=== PATIENT | male | born 1950 | race Caucasian/White ===

== ENCOUNTER → 2022-08-15 13:00 | Outpatient (BNVA) | payer MEDICARE, SELFPAY | PROVIDERS: Family Provider Family Medicine; Visit Provider Thoracic Surgery (Cardiothoracic Vascular Surgery) | DX: I96 Gangrene, not elsewhere classified (principal); L89.312 Pressure ulcer of right buttock, stage 2 | CPT/HCPCS: 97597; 99213; A6212 ==

== ENCOUNTER → 2022-08-22 13:58 | Outpatient (BNVA) | payer MEDICARE, SELFPAY | PROVIDERS: Family Provider Family Medicine; Visit Provider Thoracic Surgery (Cardiothoracic Vascular Surgery) | DX: L89.312 Pressure ulcer of right buttock, stage 2 (principal) | CPT/HCPCS: 99212 ==

== ENCOUNTER 2023-12-21 22:09 | Observation (INO) | payer MEDICARE, SELFPAY ==
[2023-12-21 22:11] VITALS: BP 187/72; PULSE 63; RESP 20; TEMP 37.1; O2SAT 98; BMI 45.1
[2023-12-21 22:22] VITALS: BP 187/72; PULSE 62; RESP 18; O2SAT 98
[2023-12-21 22:24] LABS: Glucose Point of Care 77 mg/dL (70-110)
[2023-12-21 23:01] LABS: Glucose Point of Care 76 mg/dL (70-110)
--- NOTE | 2023-12-21 23:09 | XRR_ITS ---
PROCEDURE INFORMATION: Exam: XR Chest Exam date and time: 12/22/2023 12:22 AM Age: 73 years old Clinical indication: Other: AMS; Patient HX: High BP; Hypoglycemia TECHNIQUE: Imaging protocol: Radiologic exam of the chest. Views: 1 view. COMPARISON: No relevant prior studies available. FINDINGS: Lungs: There is incomplete lung expansion and crowding of the vascular markings. Impression could. There is right basilar consolidation that may be secondary to atelectasis or in the appropriate clinical setting, pneumonia. Pleural spaces: No pleural effusion or pneumothorax. Heart/Mediastinum: Normal in size. Bones/joints: No acute fracture is identified. XR/XR chest 1V portable [id number] IMPRESSION: 1. Right basilar consolidation that may be secondary to atelectasis or in the appropriate clinical setting, pneumonia. 2. Incomplete lung expansion and crowding of the vascular markings.
[2023-12-21] MEDS: dextrose 10% 250 ML IV (23:32)
[2023-12-21 23:51] LABS: Basophils % 0.3 %; Eosinophils # 0.2 10^3/uL (0.0-0.8); Eosinophils % 1.5 %; Hematocrit 39.3 % (37-53); Lymphocytes # 1.9 10^3/uL (0.8-4.8); Lymphocytes % 12.8 %; Mean Corpuscular HGB Conc 31.8 g/dL (30-55); Mean Corpuscular Hemoglobin 29.8 pg (27-33); Mean Corpuscular Volume 93.8 fl (82-101); Mean Platelet Volume 9.3 fL (7.4-10.4); Monocytes # 1.1 10^3/uL (0.2-0.9); Monocytes % 7.2 %; Neutrophils # 11.74 10^3/uL (1.8-7.7); Neutrophils % 77.7 %; Nucleated Red Blood Cells % 0 %; Platelet Count 178 10^3/cmm (157-399); Red Blood Count 4.19 10^6/uL (3.85-5.65); Red Cell Distribution Width 14.3 % (12.1-15.1); White Blood Count 15.11 10^3/uL (3.29-11.43)
[2023-12-22 00:11] LABS: Alanine Aminotransferase 10 U/L (0-41); Albumin Level 3.7 g/dL (3.5-5.2); Alkaline Phosphatase 73 U/L (40-130); Anion Gap 14.1 (5-19); Aspartate Amino Transferase 16 U/L (0-40); Blood Urea Nitrogen 31 mg/dL (8-23); Carbon Dioxide 30 mmol/L (22-29); Chloride 100 mmol/L (98-107); Creatinine Clr Calc Pharmacy 35.0227; Globulin 3.5 g/dL (1.3-4.6); Glucose 61 mg/dL (65-115); Osmolality Calculated 292 mOsm/kg (285-295); Potassium 5.1 mmol/L (3.5-5.1); Sodium 139 mmol/L (136-145); Total Bilirubin 0.3 mg/dL (0.15-1.2); Total Protein 7.2 g/dL (6.6-8.7)
[2023-12-22 00:12] LABS: Lactic Sepsis W/Reflex 1.5 mmol/L (0.5-2.2)
[2023-12-22 00:59] VITALS: PULSE 59; RESP 18; O2SAT 98
[2023-12-22 01:00] VITALS: BP 164/66; PULSE 57; O2SAT 98
[2023-12-22 01:00] LABS: Glucose Point of Care 65 mg/dL (70-110)
[2023-12-22 01:31] LABS: Blood Urine Neg (Negative); Glucose Urine UA Norm (Normal); Ketones Urine Negative (Negative); Protein Urine 1+ (Negative); Urine Appearance Clear (CLEAR); Urine Color Yellow (Yellow); pH Urine 5 (5-7)
[2023-12-22 01:32] LABS: Add Urine Microscopic? YES; Bacteria Urine TRACE /hpf; Bilirubin Urine Neg (Negative); Leukocyte Esterase Urine Trace (Negative); Nitrate Urine Negative (Negative); Urobilinogen Urine Neg (Negative); WBC Urine 15-25 /hpf (0-5)
--- NOTE | 2023-12-22 01:54 | W.ED.AMS ---
HPI - Altered Mental Status General: Chief Complaint: Altered Mental Status Stated Complaint: AMS Time Seen by Provider: 12/21/23 22:25 History of Present Illness: 73-year-old male diabetic. Presents with altered mental status. His blood sugar was found low on EMS arrival. He was given glucose. His blood glucose is low again here. He is still mildly confused. He is more alert than he was prior to arrival. Evidently he was combative with EMS, and had to be given a small dose of ketamine. He seems to have recovered from this. Review of Systems Resp: Denies: dyspnea or productive cough PFSH ED PFSH: Medical History History of nonmelanoma skin cancer Hypertension Renal disease Diabetes Family History Other Cancer Hypertension Denies family history of Diabetes CAD (coronary artery disease) Social History Smoking and tobacco/nicotine status: never used tobacco/nicotine Alcohol intake: never Substance/Drug Use: never Physical Exam Const: COMMON NORMALS: no acute distress GENERAL APPEARANCE: cooperative; not ill appearing and not frail appearing HENMT: COMMON NORMALS: normocephalic, atraumatic and Normal external nose present HEAD & SCALP: normocephalic and atraumatic FACE & SINUS: normal facial exam and face symmetric NOSE: Normal external nose present Eye: COMMON NORMALS: Equal, round and reactive pupils present and EOMs intact bilaterally PUPIL: Yes Equal, round and reactive pupils present Neck/C-Spine: GENERAL: Yes trachea midline Chest: CHEST: Yes Symmetrical chest wall rise Resp: COMMON NORMALS: normal respiratory effort, No retractions, No use of accessory muscles and clear to auscultation bilaterally AUSCULTATION: clear to auscultation bilaterally Cardio: COMMON NORMALS: regular rate and regular rhythm RATE: regular rate RHYTHM: regular rhythm GI: COMMON NORMALS: Normal to inspection, nondistended, normoactive bowel sounds present Extremity: COMMON NORMALS: no pedal edema Neuro: ALDAIR COMA SCALE: document GCS findings [place] coma scale eye opening: Spontaneous [place] coma scale verbal response: Confused [place] coma scale motor response: Obey commands [place] coma scale total score: 14 SENSORY EXAM: Yes extremities (intact) Psych: COMMON NORMALS: speech normal SPEECH: Yes normal speech Skin: COMMON NORMALS: no rashes or lesions noted GENERAL SKIN EXAM: no rashes or lesions noted Course Vital Signs: Vital signs: Vital Signs Temperature 98.8 F 12/21/23 22:11 Pulse Rate 59 L 12/22/23 00:59 Respiratory Rate 18 12/22/23 00:59 Blood Pressure 187/72 12/21/23 22:22 Pulse Oximetry 98 12/22/23 00:59 Oxygen Delivery Me thod Room Air 12/22/23 00:59 MDM - Altered Mental Status Medical Decision Making He is mildly hypertensive. Other vitals are stable. His blood glucose on serum testing is 61. This is despite being served use, and peanut butter here. He is given dextrose 10 with minimal improvement. His creatinine is 2.8, and he is on glipizide. Likely the driving force of his continued low blood sugar. Chest x-ray reveals right basilar atelectasis. His lactic acid is normal. He is not acidotic. His anion gap is 14. Urinalysis is negative. He will be observed for continued hyperglycemia and acute kidney injury. Sugar will not stay up. Multiple doses of dextrose been given. Will have to observe the patient. He appears to have acute kidney injury as well. Hospitalist agrees. Lab Data 12/21/23 23:43 12/21/23 23:43 Radiology Impressions Chest X-Ray 12/21/23 23:09 IMPRESSION: 1. Right basilar consolidation that may be secondary to atelectasis or in the appropriate clinical setting, pneumonia. 2. Incomplete lung expansion and crowding of the vascular markings. Laboratory Results WBC 15.11 10^3/uL (3.29-11.43) H 12/21/23 23:43 RBC 4.19 10^6/uL (3.85-5.65) 12/21/23 23:43 Hgb 12.50 g/dL (11.27-16.99) 12/21/23 23:43 Hct 39.3 % (37-53) 12/21/23 23:43 MCV 93.8 fl (82-101) 12/21/23 23:43 MCH 29.8 pg (27-33) 12/21/23 23:43 MCHC 31.8 g/dL (30-55) 12/21/23 23:43 RDW 14.3 % (12.1-15.1) 12/21/23 23:43 Plt Count 178 10^3/cmm (157-399) 12/21/23 23:43 MPV 9.3 fL (7.4-10.4) 12/21/23 23:43 Neut % (Auto) 77.7 % 12/21/23 23:43 Lymph % (Auto) 12.8 % 12/21/23 23:43 [place] % (Auto) 7.2 % 12/21/23 23:43 Eos % (Auto) 1.5 % 12/21/23 23:43 Baso % (Auto) 0.3 % 12/21/23 23:43 Neut # (Auto) 11.74 10^3/uL (1.8-7.7) H 12/21/23 23:43 Lymph # (Auto) 1.9 10^3/uL (0.8-4.8) 12/21/23 23:43 [place] # (Auto) 1.1 10^3/uL (0.2-0.9) H 12/21/23 23:43 Eos # (Auto) 0.2 10^3/uL (0.0-0.8) 12/21/23 23:43 Baso # (Auto) 0.0 10^3/uL (0.0-0.1) 12/21/23 23:43 Nucleated RBC % (auto) 0 % 12/21/23 23:43 Nucleated RBCs # 0.0 /100WBC 12/21/23 23:43 Sodium 139 mmol/L (136-145) 12/21/23 23:43 Potassium 5.1 mmol/L (3.5-5.1) 12/21/23 23:43 Chloride 100 mmol/L (98-107) 12/21/23 23:43 Carbon Dioxide 30 mmol/L (22-29) H 12/21/23 23:43 Anion Gap 14.1 (5-19) 12/21/23 23:43 BUN 31 mg/dL (8-23) H 12/21/23 23:43 Creatinine 2.8 mg/dL (0.7-1.2) H 12/21/23 23:43 GFR Calculation Not Reportable 12/21/23 23:43 Glucose 61 mg/dL (65-115) L 12/21/23 23:43 POC Glucose 65 mg/dL (70-110) L 12/22/23 00:56 Calculated Osmolality 292 mOsm/kg (285-295) 12/21/23 23:43 Lactic Acid 1.5 mmol/L (0.5-2.2) 12/21/23 23:43 Calcium 9.0 mg/dL (8.5-10.5) 12/21/23 23:43 Total Bilirubin 0.3 mg/dL (0.15-1.2) 12/21/23 23:43 AST 16 U/L (0-40) 12/21/23 23:43 ALT 10 U/L (0-41) 12/21/23 23:43 Alkaline Phosphatase 73 U/L (40-130) 12/21/23 23:43 C-Reactive Protein 15.0 mg/L (0.0-4.9) H 12/21/23 23:43 Total Protein 7.2 g/dL (6.6-8.7) 12/21/23 23:43 Albumin 3.7 g/dL (3.5-5.2) 12/21/23 23:43 Globulin 3.5 g/dL (1.3-4.6) 12/21/23 23:43 Procalcitonin 0.12 ng/mL (0-0.5) 12/21/23 23:43 Urine Color Yellow (Yellow) 12/22/23 01:11 Urine Appearance Clear (CLEAR) 12/22/23 01:11 Urine pH 5 (5-7) 12/22/23 01:11 Ur Specific [place] 1.010 (1.005-1.030) 12/22/23 01:11 Urine Protein 1+ (Negative) H 12/22/23 01:11 Urine Glucose (UA) Norm (Normal) 12/22/23 01:11 Urine Ketones Negative (Negative) 12/22/23 01:11 Urine Blood Neg (Negative) 12/22/23 01:11 Urine Nitrate Negative (Negative) 12/22/23 01:11 Urine Bilirubin Neg (Negative) 12/22/23 01:11 Urine Urobilinogen Neg mg/dL (Negative) 12/22/23 01:11 Ur Leukocyte Esterase Trace (Negative) H 12/22/23 01:11 Urine RBC 5-10 /hpf (0-2) H 12/22/23 01:11 Urine WBC 15-25 /hpf (0-5) H 12/22/23 01:11 Ur Squamous Epith Cells 5-10 /hpf (0-5) H 12/22/23 01:11 Amorphous Sediment Not Reportable 12/22/23 01:11 Urine Bacteria Trace /hpf (NONE) 12/22/23 01:11 All radiology interpretation(s) finalized by discharge Discharge Plan Discharge Patient Disposition: Placed in Observation Admit Provider: Sabas Ballard Clinical Impression: Altered mental status, Hypoglycemia, AMY (acute kidney injury) Condition: Stable Coding Level of Care Code 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
--- NOTE | 2023-12-22 02:55 | P.HP_ITS ---
Providers/Chief Complaint 2 Primary Care Provider: Isiah Kelsey MD Chief Complaint: AMS History of Present Illness Zaire Lewis is a 73 year old male with history of diabetes, lives with his , presented with chief complaint of low blood sugar and altered mental status. Patient is stating that for last 3 days he has been vomiting he vomited 10 times, it was bilious in consistency. He denies any fever, he mostly takes all of his medication at bedtime. Last night when he was having dinner he started experiencing numbness around his lips he thought someone is trying to poison him, he became paranoid, had syncopal event He knew he was in the hospital. As per the EMS he was very agitated he was given ketamine. His confusion got better gradually in the hospital no signs of stroke or meningitis,, for his hypoglycemia he was put on dextrose IV fluids which we have discontinued because his blood sugar has improved Hemoglobin A1c is below 6 he should not be taking glipizide CT abdomen pelvis was requested which showed proctocolitis, signs of chronic kidney disease Review of Systems 2 Const: Denies: fever(s) Eyes: Denies: change in vision ENMT: Denies: throat pain Card: Denies: chest pain Resp: Denies: dyspnea GI: Reports: abdominal pain, nausea and vomiting : Denies: flank pain Musc: Reports: back pain Medications/Allergies Home Medications Medication Instructions Recorded Confirmed Last Taken Type acetaminophen 325 mg capsule 325 mg PO QID PRN 10/27/20 10/24/21 Unknown History (Tylenol) ammonium lactate 12 % topical cream 1 applic topical DAILY 10/27/20 10/24/21 Unknown History duloxetine 60 mg capsule,delayed 60 mg PO DAILY 10/27/20 10/24/21 Unknown History release gabapentin 100 mg capsule 100 mg PO TID 10/27/20 10/24/21 Unknown History glipizide 5 mg tablet 5 mg PO BID 10/27/20 10/24/21 Unknown History metoprolol tartrate 50 mg tablet 50 mg PO BID 10/27/20 10/24/21 Unknown History omega-3 fatty acids-vitamin E cap PO 10/27/20 10/24/21 Unknown History 1,000 mg capsule tamsulosin 0.4 mg capsule 0.4 mg PO DAILY 10/27/20 10/24/21 Unknown History tramadol 50 mg tablet 50 mg PO BID PRN 10/27/20 10/24/21 Unknown History trazodone 100 mg tablet 100 mg PO DAILY 10/27/20 10/24/21 Unknown History valsartan 80 mg tablet 80 mg PO DAILY 10/27/20 10/24/21 Unknown History triamcinolone acetonide 0.1 % 1 applic topical BID #80 grams 10/25/21 10/25/21 Unknown Rx topical ointment Allergies Allergy/AdvReac Type Severity Reaction Status Date / Time No Known Allergies Allergy Verified 10/24/21 11:07 PFSH Acute 2 PFSH: Medical History History of nonmelanoma skin cancer Hypertension Renal disease Diabetes Family History Other Cancer Hypertension Denies family history of Diabetes CAD (coronary artery disease) Social History Smoking and tobacco/nicotine status: never used tobacco/nicotine Alcohol intake: never Substance/Drug Use: never Vitals/I&O/Wt Last Vital Signs Temp 98.8 F 12/21/23 22:11 Pulse 59 L 12/22/23 00:59 Resp 18 12/22/23 00:59 BP 187/72 12/21/23 22:22 Pulse Ox 98 12/22/23 00:59 O2 Del Method Room Air 12/22/23 00:59 12/21/23 12/21/23 12/22/23 14:59 22:59 06:59 Intake Total 250 / 250 Balance 250 / 250 Weight last 48 hrs Weight 151.046 kg Physical Exam 2 Narrative: Morbidly obese male Awake and alert GCS 15 Nonfocal neuroexam Pleasant cooperative Nontender distended abdomen S1, S2 NIH 0 Currently room air Data 12/21/23 23:43 12/21/23 23:43 A&P Assessment and plan (1) Hypoglycemia: (2) Altered mental status: (3) Acute kidney injury superimposed on chronic kidney disease: (4) Proctocolitis: (5) Constipation: Plan Metabolic encephalopathy Related to UTI, hypoglycemia and proctocolitis No sign of sepsis Hyperglycemia improved, discontinued IV fluids Hemoglobin A1c 5.3 patient should not be taking glipizide at home Acute on chronic kidney disease: Bladder outlet obstruction, distended bladder, required straight cath Signs of UTI present as well Proctocolitis: Considering UTI proctocolitis I decided to choose Zosyn which will be renally dosed Type 2 diabetes: Patient should not take glipizide . Hypertension: Considering worsening creatinine I will hold off on valsartan Full code Cardiac consistent carb diet Constipation: Will give lactulose DVT prophylaxis added Insulin with sliding scale Attestations 2 Medical Necessity Statement*: Anticipating discharge within 48 hours Diagnoses Hypoglycemia E16.2 Altered mental status R41.82 Acute kidney injury superimposed on chronic kidney disease N17.9; N18.9 Proctocolitis K52.9 Constipation K59.00
--- NOTE | 2023-12-22 02:58 | CTR_ITS ---
PROCEDURE INFORMATION: Exam: CT Abdomen And Pelvis Without Contrast Exam date and time: 12/22/2023 4:27 AM Age: 73 years old Clinical indication: Other: Philip; Additional info: CR 2.8 TECHNIQUE: Imaging protocol: Computed tomography of the abdomen and pelvis without contrast. Radiation optimization: All CT scans at this facility use at least one of these dose optimization techniques: automated exposure control; mA and/or kV adjustment per patient size (includes targeted exams where dose is matched to clinical indication); or iterative reconstruction. COMPARISON: CR (CHEST, ) 22/12/2023 00:22 RADIATION DOSE METRICS: Total DLP (mGy-cm): 1362.84 FINDINGS: Lungs: There are bibasilar ground-glass opacities. Liver: Normal size and homogeneous density. No liver mass is seen. Gallbladder and biliary ducts: Multiple laminated gallstones as large as 2.7 cm. No pericholecystic fluid or gallbladder wall thickening. Pancreas: Normal size and homogeneous density. No ductal dilation. Spleen: Normal. No splenomegaly. Adrenal glands: Normal. No mass. Kidneys and ureters: Bilateral rather small kidneys, the right measuring 9.4 cm in length and the left measuring 10.2 cm in length. There is no hydronephrosis. No renal or obstructive ureteral calculi identified. In the right kidney, there is a 2.5 cm hypodense lesion that may represent a simple cyst or angiomyolipoma. Stomach and bowel: There is no evidence of small bowel or colonic obstruction. Moderate fecal stasis in the rectosigmoid with thickening of the wall consistent with stercoral proctocolitis. Appendix: A normal appendix is identified. Intraperitoneal space: No free air. No significant fluid collection. Vasculature: No abdominal aortic aneurysm. Lymph nodes: No enlarged retroperitoneal or mesenteric lymph nodes. Urinary bladder: A moderately to severely distended urinary bladder measuring 12.3 x 8.3 x 9.2 cm. Reproductive: The prostate measures 4.4 cm in transverse dimension, not enlarged. Bones/joints: No acute fracture. No evidence of bone destruction. Soft tissues: Unremarkable. CT/CT abdomen pelvis wo con [id number] IMPRESSION: 1. Bilateral rather small kidneys without hydronephrosis, with no renal or ureteral calculi. 2. A 2.5 cm hypodense lesion in the right kidney that may represent a simple cyst or angiomyolipoma. 3. Moderate fecal stasis in the rectosigmoid with thickening of the wall consistent with stercoral proctocolitis. 4. A moderately to severely distended urinary bladder measuring 12.3 x 8.3 x 9.2 cm. 5. There are bibasilar ground-glass opacities. These may represent atelectasis, pneumonitis or mild edema.
[2023-12-22 03:27] LABS: Procalcitonin 0.12 ng/mL (0-0.5)
[2023-12-22] MEDS: dextrose 10% 250 ML 999 ML IV (03:31)
[2023-12-22 03:40] LABS: Glucose Point of Care 65 mg/dL (70-110)
[2023-12-22] MEDS: sodium chloride 0.9% 1,000 ML 999 ML IV (04:06)
[2023-12-22 04:07] VITALS: BP 158/47; PULSE 66; RESP 18; O2SAT 97
[2023-12-22] MEDS: glucagon 1 mg/mL KIT 1 mL IM (04:19)
[2023-12-22 05:28] LABS: Glucose Point of Care 101 mg/dL (70-110)
[2023-12-22] MEDS: cefTRIAXone 1,000 MG in sodium chloride 0.9% (plus) 50 ML 100 MG IV (05:36)
[2023-12-22] MEDS: heparin 5,000 unit/mL INJ 1 mL 5000 UNIT SUBCUT (05:42)
[2023-12-22 06:20] LABS: Estmated Average Glucose 105; Hemoglobin A1C 5.3 % (4.0-6.0)
[2023-12-22 06:57] LABS: Thyroid Stimulating Hormone 1.74 uIU/mL (0.27-4.20); Vitamin B12 1710 pg/mL (232-1245)
[2023-12-22 08:07] VITALS: BP 165/70; PULSE 62; RESP 18; TEMP 36.7; O2SAT 94
[2023-12-22] MEDS: lactulose oral liq 20 gm/30 mL UDC 30 GM PO (08:37)
[2023-12-22] MEDS: TRAMadol 50 mg Tablet PO (08:37)
[2023-12-22] MEDS: metoprolol tartrate 25 mg Tablet PO (08:37)
[2023-12-22] MEDS: amlodipine 10 mg Tablet PO (08:37)
[2023-12-22] MEDS: piperacillin-tazobactam 3.375 GM in sodium chloride 0.9% (plus) 50 ML IV (08:37)
[2023-12-22] MEDS: tamsulosin 0.4 mg Capsule PO (08:37)
[2023-12-22 11:10] LABS: Glucose Point of Care 111 mg/dL (70-110)
[2023-12-22 11:26] VITALS: BP 127/56; PULSE 73; RESP 18; TEMP 36.7; O2SAT 92
[2023-12-22 14:29] VITALS: BP 127/56; PULSE 73; RESP 18; TEMP 36.7; O2SAT 92
--- NOTE | 2023-12-22 19:58 | PM.MISC ---
Miscellaneous Note Purpose of Documentation: Assessed patient at 2 PM. Patient requesting discharge to home. States that he understands he has stercoral colitis but states he does not like having bowel movements in the hospital bathroom therefore he would much rather go home. Hypoglycemia remains resolved. Glipizide has been discontinued at discharge. His A1c is only at 5.3. Patient is clinically stable. Afebrile, hemodynamically stable. Tolerating p.o. intake. Discontinued IV antibiotics, transition to oral ciprofloxacin and metronidazole at the time of discharge. Instructed to follow-up with general surgery for follow-up colonoscopy after 6 weeks. Added lactulose 10 mg to his daily regimen to minimize risk of recurrent stercoral colitis. Patient reports he has baseline CKD. Reports his last GFR to be close to 22.This appears to be close to his kidney function today. States that he is not yet considered a candidate for dialysis. Follows with virology teacher in [place]. Consider this note to be a short stay summary
== END 2023-12-22 14:30 | disposition home or self-care (01) ==
LOC: ER 12-22 01:56 → MEDSURG 12-22 03:51
PROVIDERS: Admitting Provider Internal Medicine; Emergency Provider Emergency Medicine; PCP Family Medicine; Visit Provider Student in an Organized Health Care Education/Training Program
DX: E11.649 Type 2 diabetes mellitus with hypoglycemia without coma (principal); R41.82 Altered mental status, unspecified; N17.9 Acute kidney failure, unspecified; E11.22 Type 2 diabetes mellitus with diabetic chronic kidney disease; I12.9 Hypertensive chronic kidney disease with stage 1 through stage 4 chronic kidney disease, or unspecified chronic kidney disease; N18.9 Chronic kidney disease, unspecified; K52.9 Noninfective gastroenteritis and colitis, unspecified; K59.00 Constipation, unspecified; N32.0 Bladder-neck obstruction
CPT/HCPCS: 36415; 36416; 71045; 74176; 80053; 81001; 82607; 82962; 83036; 83605; 84145; 84443; 85025; 86140; 96365; 96367; 96372; 99285; G0378; J0696; J1610; J1644; J2543; J7030; J7799

== ENCOUNTER → 2023-12-25 09:30 | Outpatient (BNVA) | payer MEDICARE, SELFPAY | PROVIDERS: PCP Family Medicine; Visit Provider Nurse Practitioner Family | DX: D48.5 Neoplasm of uncertain behavior of skin (principal); L57.0 Actinic keratosis; L82.1 Other seborrheic keratosis; L81.4 Other melanin hyperpigmentation; L73.8 Other specified follicular disorders; L57.8 Other skin changes due to chronic exposure to nonionizing radiation; Z85.820 Personal history of malignant melanoma of skin; Z85.828 Personal history of other malignant neoplasm of skin | CPT/HCPCS: 11102; 17000; 99213 ==

== ENCOUNTER → 2024-01-20 10:14 | Outpatient (BNVA) | payer MEDICARE, SELFPAY | PROVIDERS: PCP Family Medicine; Visit Provider Dermatology | DX: D04.62 Carcinoma in situ of skin of left upper limb, including shoulder (principal); D04.61 Carcinoma in situ of skin of right upper limb, including shoulder; L73.8 Other specified follicular disorders; D69.2 Other nonthrombocytopenic purpura | CPT/HCPCS: 17262; 99213 ==

== ENCOUNTER → 2024-05-11 10:59 | Outpatient (BNVA) | payer MEDICARE, SELFPAY | PROVIDERS: PCP Family Medicine; Visit Provider Nurse Practitioner Family | DX: L21.8 Other seborrheic dermatitis (principal); L85.8 Other specified epidermal thickening; L82.1 Other seborrheic keratosis; L73.8 Other specified follicular disorders; D69.2 Other nonthrombocytopenic purpura; Z85.820 Personal history of malignant melanoma of skin; Z08 Encounter for follow-up examination after completed treatment for malignant neoplasm; Z85.828 Personal history of other malignant neoplasm of skin | CPT/HCPCS: 99213 ==

== ENCOUNTER → 2024-11-09 10:59 | Outpatient (BNVA) | payer MEDICARE, SELFPAY | PROVIDERS: PCP Family Medicine; Visit Provider Nurse Practitioner Family | DX: L21.8 Other seborrheic dermatitis (principal); L82.1 Other seborrheic keratosis; L73.8 Other specified follicular disorders; D69.2 Other nonthrombocytopenic purpura; Z85.820 Personal history of malignant melanoma of skin; Z08 Encounter for follow-up examination after completed treatment for malignant neoplasm; Z85.828 Personal history of other malignant neoplasm of skin; L82.0 Inflamed seborrheic keratosis; L29.89 Other pruritus; R20.9 Unspecified disturbances of skin sensation; R20.8 Other disturbances of skin sensation; L53.8 Other specified erythematous conditions | CPT/HCPCS: 17110; 99213 ==

== ENCOUNTER → 2025-02-23 10:45 | Outpatient (BNVA) | payer MEDICARE, SELFPAY | PROVIDERS: PCP Family Medicine; Visit Provider Nurse Practitioner Family | DX: L21.8 Other seborrheic dermatitis (principal); L82.1 Other seborrheic keratosis; L57.8 Other skin changes due to chronic exposure to nonionizing radiation; Z85.820 Personal history of malignant melanoma of skin; Z08 Encounter for follow-up examination after completed treatment for malignant neoplasm; Z85.828 Personal history of other malignant neoplasm of skin; L72.0 Epidermal cyst; L56.8 Other specified acute skin changes due to ultraviolet radiation; L53.8 Other specified erythematous conditions; B07.8 Other viral warts; L82.0 Inflamed seborrheic keratosis; L29.89 Other pruritus | CPT/HCPCS: 10060; 17000; 17110; 99214 ==